=== PATIENT | male | born 1990 ===

== ENCOUNTER 2018-11-26 07:42 | Outpatient (CLI) | payer OTHER ==
[~2018-11-26] VITALS: Ht 152.4 cm; Wt 87.5 kg
== END 2018-11-26 08:00 | disposition home or self-care (01) ==
LOC: OFIC 805 07:42
DX: H69.81 Other specified disorders of Eustachian tube, right ear (principal); M26.611 Adhesions and ankylosis of right temporomandibular joint; H90.A21 Sensorineural hearing loss, unilateral, right ear, with restricted hearing on the contralateral side; H92.01 Otalgia, right ear

== ENCOUNTER 2023-05-12 18:35 | Emergency (ER) | payer OTHER ==
[~2023-05-12] VITALS: Ht 177.8 cm; Wt 95.3 kg
== END 2023-05-12 22:55 | disposition home or self-care (01) ==
LOC: ER 18:35
DX: J06.9 Acute upper respiratory infection, unspecified (principal); Z20.822 Contact with and (suspected) exposure to COVID-19